=== PATIENT | male | born 1930 | race Caucasian/White ===

== ENCOUNTER 2019-01-24 10:02 | Outpatient (CLI) | payer OTHER | END 2019-01-24 20:22 | disposition home or self-care (01) | LOC: MRD 10:02 | PROVIDERS: ATTEND Neuromusculoskeletal Medicine, Sports Medicine | DX: M25.862 Other specified joint disorders, left knee (principal); M85.88 Other specified disorders of bone density and structure, other site; Z96.652 Presence of left artificial knee joint | CPT/HCPCS: 73562 ==